=== PATIENT | female | born 1995 | race Caucasian/White ===

== ENCOUNTER 2017-11-04 17:24 | Emergency (ER) | payer OTHER ==
[2017-11-04 17:39] VITALS: BP 129/65
--- NOTE | 2017-11-04 18:44 | ED ---
Oren Santana Jacob, scribed for Eliane Ghosh MD on 11/04/17 at 1811 . Upper Extremity Pain - HPI Summary HPI Summary: Pt is a 22 y/o F w/ c/o R shoulder pain onsetting a couple of months ago sometime in mid to late July. She notes pain is located on the front right shoulder and mild radition into her right bicep. Pt reports that she experiences shooting pain down her arm and a tingling sensation in her fingers when pain it was at its worst, but no longer. 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 Pt did physical therapy and was placed on restricted volleyball play.However, she feels that recovery progress has been minimal. She stopped playing volleyball in August and continued physical therapy for some time but she discontinued to give her arm rest. Pt states she has not seen anyone in follow-up in > 2 months. Pt states throwing/spiking motion is most painful.Little pain at rest. no paresthesia, no arm weakness. Pt has not done exercises, applied ice or taken analgesia for some time. Pt also reports tightness in the right paraspinal cervical region with discomfort extending to right trapezius. Pt states her sports medicine trainer "aligned her spine by cracking her neck) but discomfort continues. Pt states worse with right lateral rotation of c-spine. Pt states she came tonight because school practice starts 1 month from now and she is still not back to her baseline. Pt's medications reviewed this visit - History of Current Complaint Chief Complaint: UCUpperExtremity Stated Complaint: L SHOULDER PAIN Time Seen by Provider: 11/04/17 17:48 Hx Obtained From: Patient Hx Last Menstrual Period: 10/08/17 Onset/Duration: Started Weeks Ago - Pain began mid-late July, Still Present Timing: Constant Severity Currently: Mild - rated 1/10 on triage Pain Location: Shoulder - right shoulder pain Aggravating Factor(s): Movement - throwing movements with right shoulder Associated Signs & Symptoms: Positive: Neck Pain - Allergies/Home Medications Allergies/Adverse Reactions: Allergies Allergy/AdvReac Type Severity Reaction Status Date / Time No Known Allergies Allergy Verified 11/04/17 17:29 Home Medications: Home Medications Norethindrone-E.estradiol-Iron [Minastrin 24 Fe Chewable Tab] 1 each PO DAILY [History Confirmed 11/04/17] PMH/Surg Hx/FS Hx/Imm Hx Previously Healthy: Yes Endocrine/Hematology History: Reports: Other Endocrine/Hematological Disorders - NEGATIVE: Diabetes Cardiovascular History: Reports: Other Cardiovascular Problems/Disorders - NEGATIVE: HTN - Surgical History Surgery Procedure, Year, and Place: none Infectious Disease History: No Infectious Disease History: Denies: Traveled Outside the [place] in Last 30 Days - Family History Known Family History: Positive: Other - non contributory - Social History Occupation: Student Lives: With Family Alcohol Use: None Substance Use Type: Reports: None Smoking Status (MU): Never Smoked Tobacco Review of Systems Positive: Other - NEGATIVE: fever Positive: Other - POSITIVE: right shoulder pain, neck pain All Other Systems Reviewed And Are Negative: Yes Physical Exam - Summary Physical Exam Summary: Vital Signs Reviewed: Yes A+Ox3, no distress Eyes: Conjunctiva Clear, WOODY. EOM intact and full ENT: Hearing grossly normal TM x 2 clear, mmoist, uvula midline, no exudate, no erythema Neck: Positive: Supple Respiratory: Positive: No respiratory distress, No accessory muscle use + CTA throughout no w/r Cardiovascular: RRR nl s1, s2 no m/r CBT <2 sec abd soft + BS nt/nd no guarding, no distension Musculoskeletal Exam: No pain c/t/l/s Full AROM c spine + right paraspinal muscle tightness Pt with Full AROM of c spine. Pain increased with right lateral rotation and left abduction of neck Pt with 5/5 full AROM RUQ against resistance. mild discomfort with direct palpation anterior insertion of bicep. no pain along clavicle or scapula. Pt recreated pain with full extension or arm elevated overhead and coming downward Neurological: Positive: Alert, + sensation throughout 5/5 grasp, thumb up, a ok , finger cross, finger spread Psychological: Positive: Normal Response To Family Skin: Positive: no rash, no ecchymosis Triage Information Reviewed: Yes Vital Signs On Initial Exam: Initial Vitals Temp Pulse Resp BP Pulse Ox 99.1 F 67 18 129/65 100 11/04/17 17:30 11/04/17 17:30 11/04/17 17:30 11/04/17 17:30 11/04/17 17:30 Diagnostics - Vital Signs Vital Signs Temp Pulse Resp BP Pulse Ox 11/04/17 17:30 99.1 F 67 18 129/65 100 - Laboratory Lab Statement: Any lab studies that have been ordered have been reviewed, and results considered in the medical decision making process. - Radiology right shoulder x-ray Xray Interpretation: Positive (See Comments) Radiology Interpretation Completed By: Radiologist - Widening of AC joint for which the possibility of AC joint separation should be considered. This report was reviewed by physician. Course/Dx - Course Course Of Treatment: Pt presents with ongoing pain right anterior shoulder. 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 Patient states she was seen by a sports medicine trainer, had physical therapy. Patient states the pain is improved but not resolved. Patient has not had physical therapy, take analgesia, I done much movement of that shoulder in the last 2 months. Patient's concerned because her sports season starts again in approximately 1 month and she is not back to her baseline. Patient also complains of discomfort the right lateral side of her neck. Patient states it felt tight and she had a sports medicine trainer "crack her back "patient states discomfort with full range of motion since this time. No analgesia taken. On exam, patient with tenderness the right paraspinal cervical area. Patient with good range of motion of netbook pain worse with full rotation to the right or abduction to the left. Patient also with discomfort right anterior bicep. Patient with good range of motion and good strength in the hand. Distal CSM intact. Will check imaging to make sure there is no avulsion fracture or bone spur. Anticipate these will be unremarkable. Expect the patient will follow up with sports medicine practice. Encourage patient to call on morning for follow-up. Patient also requesting referral for physical therapy. I encourage patient to see sports medicine first is a well built instructed to the right therapist for her injury. Patient states understanding and referral given for both. Patient declined a work note as she currently doesn't just dropped her shoulder discomfort does not interfere. - Diagnoses Provider Diagnoses: Musculoskeletal pain, Right anterior shoulder pain Discharge - Sign-Out/Discharge Documenting (check all that apply): Discharge/Admit/Transfer - Discharge Plan Condition: Stable Disposition: HOME Patient Education Materials: Musculoskeletal Pain (ED), Tendinitis (ED) Referrals: Agatha Carlton NP [Primary Care Provider] - 2 Days [facility] [Provider Group] - 2 Days Additional Instructions: Call for appointment on , 11/06/17. - okay to alternate ibuprofen (Advil, Motrin) and Tylenol every 3 hours for pain. Take with food. Do not take for more than 2-3 days. - Okay for gentle stretching exercises to your shoulder. After exercising, apply ice (wrapped in a towel) 20 minutes at a time, 2-3 times a day. - It is recommended to call the sports medicine group on morning to schedule a follow-up appointment. With respect to your neck discomfort. The doctor examined to feel this is related to muscle tightness. Recommended to apply moist heat to her neck. Dyspnea include hot showers, hot tub, heating pad. When she muscles are warm, slow gentle exercises are important. You may also take pain medication as outlined above. If you develop arm weakness, arm swelling, uncontrolled pain is recommended to go to emergency department for further evaluation and treatment. - Billing Disposition and Condition Condition: STABLE Disposition: Home The documentation as recorded by the Oren canchola Jacob accurately reflects the service I personally performed and the decisions made by , Eliane Ghosh MD.
--- NOTE | 2017-11-04 19:05 | RAD ---
Indication: Shoulder pain. 4 views of the right shoulder demonstrates no fracture. There is widening of AC joint and the possibility of AC joint separation should be considered. IMPRESSION: Widening of AC joint for which the possibility of AC joint separation should be considered.
== END 2017-11-04 19:05 | disposition home or self-care (01) ==
LOC: UCEAST 17:24
DX: M25.511 Pain in right shoulder (principal); M54.2 Cervicalgia
CPT/HCPCS: 99211; G0463